=== PATIENT | male | born 1985 | race Caucasian/White ===

== ENCOUNTER 2023-09-21 20:16 | Emergency (ER) | payer BC, OTHER ==
[2023-09-21 20:32] VITALS: BP 150/67; PULSE 76; RESP 18; TEMP 98.5; BMI 29.0
[2023-09-21] MEDS ORDERED: LIDOCAINE HCL 1%, 10 MG/ML (50 mL VIAL) SQ ONE (21:51)
[2023-09-21] MEDS ORDERED: ACETAMINOPHEN 500 MG TABLET (FP) PO ONE (21:51)
[2023-09-21] MEDS ORDERED: ACETAMINOPHEN 500 MG TABLET (FP) ONE (21:52)
[2023-09-21] MEDS ORDERED: LIDOCAINE HCL 1%, 10 MG/ML (20ML VIAL) ONE (21:52)
[2023-09-21] MEDS ORDERED: IBUPROFEN 400 MG TABLET (FP) PO ONE ×2 (22:10→22:25)
[2023-09-21] MEDS ORDERED: METHOCARBAMOL 750 MG TAB PO ONE (22:10)
[2023-09-21] MEDS ORDERED: METHOCARBAMOL 500 MG TABLET ONE (22:25)
[2023-09-21] MEDS ORDERED: METHOCARBAMOL 500 MG TABLET PO ONE (22:25)
== END 2023-09-21 22:35 | disposition home or self-care (01) ==
LOC: JERFT 20:16
DX: M79.604 Pain in right leg (principal); M25.561 Pain in right knee
CPT/HCPCS: 99283-25